=== PATIENT | male | born 1975 | race African-American/Black ===

== ENCOUNTER 2020-02-14 14:36 | Inpatient (IN) ==
[2020-02-14 16:42] LABS: Basophils % 0.1 % (0.0-0.8); Hematocrit 40.6 VOL% (42.0-52.0); Hemoglobin 12.7 GM/DL (14.0-18.0); Immature Granulocytes % 0.9 %; Immature Granulocytes Absolute 0.08 #; Lymphocytes # 0.7 10*3/uL (1.4-4.0); Lymphocytes % 7.4 % (21.2-54.2); Mean Corpuscular HGB Conc 31.3 GM/DL (32-36); Mean Platelet Volume 11.5 FL (9.6-12.0); Neutrophils % 85.6 % (38.7-73.9); Platelet Count 218 T/CUMM (130-400); Red Blood Count 4.46 MC/CUMM (3.8-5.5); Red Cell Distribution Width 13.3 % (9.3-17.3); White Blood Count 8.9 T/CUMM (4-12)
[2020-02-14 16:53] LABS: Albumin 3.3 G/DL (3.4-5.0); Bilirubin,Total 0.5 MG/DL (0.2-1.0); Calcium 8.7 MG/DL (8.5-10.1); Osmolality,Calculated 283.8 MOS/KG (273-304); Total Protein 7.6 G/DL (6.4-8.3)
[2020-02-14] MEDS ORDERED: DEXTROSE 50% 25 GM/50 ML VIAL IV PRN ×2 (18:46)
[2020-02-14] MEDS ORDERED: GLUCAGON 1 MG VIAL IM PRN ×2 (18:46)
[2020-02-14] MEDS: INSULIN LISPRO 100 UNIT/ML SUBCUT SCH (20:53)
[2020-02-14] MEDS: metFORMIN 500 MG TABLET PO SCH (20:53)
[2020-02-14] MEDS: HEPARIN 5,000 UNIT/1 ML VIAL SUBCUT SCH (20:54)
[2020-02-15 06:48] LABS: Hematocrit 36.2 VOL% (42.0-52.0); Hemoglobin 11.7 GM/DL (14.0-18.0); Immature Granulocytes % 0.7 %; Immature Granulocytes Absolute 0.06 #; Lymphocytes # 1.3 10*3/uL (1.4-4.0); Lymphocytes % 15.4 % (21.2-54.2); Mean Corpuscular HGB Conc 32.3 GM/DL (32-36); Mean Corpuscular Volume 89.4 FL (87-102); Mean Platelet Volume 10.6 FL (9.6-12.0); Monocytes % 15.1 % (1.7-12.7); Neutrophils % 68.8 % (38.7-73.9); Platelet Count 232 T/CUMM (130-400); Red Blood Count 4.05 MC/CUMM (3.8-5.5); Red Cell Distribution Width 13.2 % (9.3-17.3); White Blood Count 8.3 T/CUMM (4-12)
[2020-02-15 07:29] LABS: Hypochromasia 1+; Microcytosis 1+; Platelet Estimate Adequate
[2020-02-15] MEDS: hydroCHLOROthiazide 12.5 MG CAPSULE PO SCH (09:22)
[2020-02-15] MEDS: metFORMIN 500 MG TABLET PO SCH ×2 (09:22→17:18)
[2020-02-15] MEDS: LOSARTAN 50 MG TABLET PO SCH (09:22)
[2020-02-15] MEDS: INSULIN LISPRO 100 UNIT/ML SUBCUT SCH ×4 (09:22→20:29)
[2020-02-15] MEDS: HEPARIN 5,000 UNIT/1 ML VIAL SUBCUT SCH ×3 (09:22→20:32)
[2020-02-15] MEDS: PANTOPRAZOLE 40 MG TABLET PO SCH (09:22)
[2020-02-15 13:32] LABS: Calcium 8.7 MG/DL (8.5-10.1); Osmolality,Calculated 283.7 MOS/KG (273-304); Risk Ratio 3.33; Thyroid Stimulating Hormone 0.179 uIU/ml (0.358-3.74); VLDL CHOLESTEROL 10.4 MG/DL
[2020-02-15] MEDS: DEXAMETHASONE 4 MG TABLET PO SCH (15:04)
[2020-02-15] MEDS ORDERED: INSULIN GLARGINE 100 UNIT/ML SUBCUT SCH (17:00)
[2020-02-16] MEDS: hydroCHLOROthiazide 12.5 MG CAPSULE PO SCH (09:07)
[2020-02-16] MEDS: DEXAMETHASONE 4 MG TABLET PO SCH (09:08)
[2020-02-16] MEDS: metFORMIN 500 MG TABLET PO SCH (09:08)
[2020-02-16] MEDS: LOSARTAN 50 MG TABLET PO SCH (09:08)
[2020-02-16] MEDS: PANTOPRAZOLE 40 MG TABLET PO SCH (09:09)
[2020-02-16] MEDS: INSULIN LISPRO 100 UNIT/ML SUBCUT SCH ×2 (09:09→12:02)
[2020-02-16] MEDS: HEPARIN 5,000 UNIT/1 ML VIAL SUBCUT SCH (09:10)
[2020-02-16 11:23] VITALS: BP 154/91
== END 2020-02-16 14:00 | disposition home or self-care (01) | DRG 179 ==
LOC: N.ED 14:36 → N.EDINP 14:36 → N.2E 19:40
PROVIDERS: ADMIT Internal Medicine; ATTEND Internal Medicine